=== PATIENT | female | born 1995 | race Caucasian/White ===

== ENCOUNTER 2016-10-04 06:25 | Inpatient (IN) ==
[2016-10-04] MEDS ORDERED: KEFZOL 1 GM/D5W 1 GM/50 ML IVPB IV PRN (06:28)
[2016-10-04] MEDS ORDERED: TYLENOL PO PRN (06:28)
[2016-10-04] MEDS ORDERED: PEPCID IV PRN (06:28)
[2016-10-04] MEDS ORDERED: REGLAN PO ONE (06:28)
[2016-10-04] MEDS ORDERED: PEPCID PO PRN (06:28)
[2016-10-04] MEDS ORDERED: PEPCID PO ONE (06:28)
[2016-10-04] MEDS ORDERED: ZOFRAN IV PRN (06:28)
[2016-10-04] MEDS ORDERED: STADOL IV PRN (06:28)
[2016-10-04] MEDS ORDERED: SODIUM CHLORIDE 0.9% INJ SCH (06:30)
[2016-10-04] MEDS: LR 1,000 ML IV SCH ×2 (06:48→07:32)
[2016-10-04] MEDS ORDERED: PITOCIN 30 UNITS/LR 30 UNITS/500 ML IV.SOLN IV SCH (07:00)
[2016-10-04] MEDS ORDERED: AMPICILLIN 2 GM/NS 2 GM/100 ML IVPB IV ONE (07:00)
[2016-10-04 07:15] LABS: MANUAL DIFF NEEDED? NO
[2016-10-04] MEDS ORDERED: MARCAINE 0.25% PF INJ ONE (07:15)
[2016-10-04 07:17] LABS: BASO% 0.2 % (0.0-0.8); EOS# 0.13 X1000 (0.0-0.7); EOS% 1.1 % (0.0-10.0); HEMATOCRIT 38.4 % (37.0-47.0); HEMOGLOBIN 13.2 g/dL (12.0-16.0); IMM GRAN# 0.03 X1000 (0.0-0.04); IMM GRAN% 0.3 % (0.0-0.5); LYMPH% 18.9 % (20.5-51.1); MCH 30.1 PG (27-31); MCHC 34.4 g/dL (33-37); MCV 87.7 FL (81-99); MONO# 1.07 X1000 (0.11-0.59); MONO% 9.2 % (1.7-9.3); MPV 11.1 FL (7.4-10.4); NEUT% 70.3 % (42.2-75.2); PLT 180 X1000 (130-400); RBC 4.38 XMIL (4.2-5.4)
[2016-10-04] MEDS ORDERED: FENTANYL-BUPIV-NS 2 MCG-0.1% 200 ML EPIDURAL ONE ×2 (08:00→19:00)
[2016-10-04] MEDS: AMPICILLIN 1 GM/NS 1 GM/50 ML IVPB IV SCH ×3 (12:15→18:36)
[2016-10-04] MEDS ORDERED: XYLOCAINE-MPF 1% ONE (14:56)
[2016-10-04] MEDS ORDERED: MINERAL OIL ONE ×2 (14:56→20:01)
[2016-10-04] MEDS ORDERED: REGLAN IV ONE (17:15)
[2016-10-04] MEDS ORDERED: BICITRA PO ONE (17:15)
[2016-10-04] MEDS ORDERED: PEPCID IV ONE (17:15)
[2016-10-04] MEDS ORDERED: SODIUM CHLORIDE 0.9% INJ ONE (17:15)
[2016-10-04] MEDS ORDERED: BENADRYL IV PRN (23:22)
[2016-10-04] MEDS ORDERED: HYDROXYZINE PO PRN (23:22)
[2016-10-04] MEDS ORDERED: HYDROXYZINE IM PRN (23:22)
[2016-10-04] MEDS ORDERED: PITOCIN 30 UNITS/LR 30 UNITS/500 ML IV.SOLN IV ONE (23:22)
[2016-10-04] MEDS ORDERED: PITOCIN IM PRN (23:22)
[2016-10-04] MEDS ORDERED: AMBIEN PO PRN (23:22)
[2016-10-04] MEDS ORDERED: CYTOTEC PO PRN (23:22)
[2016-10-04] MEDS ORDERED: MINERAL OIL PO PRN (23:22)
[2016-10-04] MEDS ORDERED: NORCO-5 PO PRN (23:22)
[2016-10-04] MEDS ORDERED: XYLOCAINE-MPF 1% INJ PRN (23:22)
[2016-10-04] MEDS ORDERED: PITOCIN 20 UNITS/LR 20 UNITS/1,000 ML IV.SOLN IV SCH (23:22)
[2016-10-04] MEDS ORDERED: M-M-R II VACCINE SUBQ ONE (23:22)
[2016-10-04] MEDS ORDERED: BENADRYL PO PRN (23:22)
[2016-10-04] MEDS ORDERED: PERI MEDS (DERMOPLAST/NUPERCAINAL/TUCKS) MISC PRN (23:22)
[2016-10-04] MEDS ORDERED: NORCO-10 PO PRN (23:22)
[2016-10-04] MEDS ORDERED: BOOSTRIX VACCINE IM ONE (23:22)
[2016-10-05] MEDS: MOTRIN PO PRN ×2 (00:49→22:22)
--- NOTE | 2016-10-05 03:44 | OPERATIVE NOTE ---
PROCEDURE DATE: 10/04/2016 PREDELIVERY DIAGNOSES: 1. Intrauterine at term. 2. Postdates . 3. Group B streptococcus carrier status positive and Rh-negative blood type. 4. Spontaneous onset of labor. POSTDELIVERY DIAGNOSES: 1. Intrauterine at term. 2. Postdates . 3. Group B streptococcus carrier status positive and Rh-negative blood type. 4. Spontaneous onset of labor. 5. Nuchal cord x5. PROCEDURE: Vaginal delivery. PHYSICIAN: Harpreet Orlando MD. ANESTHESIA: Epidural, done by Dr. Morejon. FINDINGS: Viable male infant, nuchal cord x5, 6 pounds 14 ounces, 7 and 9 Apgars. Occiput anterior. Placenta spontaneous, intact. Three-vessel cord. Second-degree midline vaginal laceration repair with a luppii-tz-eoirb stitch of 3-0 Polysorb. ESTIMATED BLOOD LOSS: 100 mL. COUNTS: Correct after delivery. DESCRIPTION OF PROCEDURE: Please refer to Ms. Skinner' records. She had good care. She was admitted this morning in active labor, with the above diagnoses. She was augmented with Pitocin and received epidural anesthesia and was artificially ruptured. Initially, the baby was very high. After rupture, slowly came down, developed some caput, and had some heart rate decelerations, but she made it through to complete and began pushing. Approximately 2 hours later the baby was , so at this point the bed was broken down, and with continued pushing, she delivered a viable male infant, occiput anterior, over a second-degree midline vaginal laceration. Once head delivered, she continued pushing. Shoulders immediately followed. The nuchal cord was noted, started to unwrap. There were 5 wraps of the nuchal cord around the 's neck. Once completely unwrapped, the infant was placed on mother's abdomen. Cord was doubly clamped and cut. Care of taken over by nursery personnel. The cord inspected. It was a 3-vessel cord. Then, cord blood was obtained. Gentle traction on the cord resulted in delivery of an intact placenta after approximately 3 minutes. After inspection, it was discarded. Inspection of the vaginal perineum did not reveal any lacerations. However, there was a midline vaginal laceration, repaired with a bihiow-oc-zcxyr stitch of 3-0 Polysorb. Sweep of the vagina did not reveal any clots remaining or foreign material. So at this point, the procedure was completed. Counts were correct, 10 Ray-Tecs, 1 needle, and 1 vaginal pack. Estimated blood loss 100 mL. Expect routine . cc: Harpreet Orlando MD
[2016-10-05 05:53] LABS: MANUAL DIFF NEEDED? NO
[2016-10-05 06:12] LABS: BASO% 0.1 % (0.0-0.8); EOS# 0.04 X1000 (0.0-0.7); EOS% 0.2 % (0.0-10.0); HEMATOCRIT 29.9 % (37.0-47.0); HEMOGLOBIN 10.1 g/dL (12.0-16.0); IMM GRAN# 0.04 X1000 (0.0-0.04); IMM GRAN% 0.2 % (0.0-0.5); LYMPH# 1.74 X1000 (1.2-3.4); LYMPH% 9.7 % (20.5-51.1); MCH 30.2 PG (27-31); MCHC 33.8 g/dL (33-37); MCV 89.5 FL (81-99); MONO# 1.34 X1000 (0.11-0.59); MONO% 7.4 % (1.7-9.3); MPV 11.1 FL (7.4-10.4); NEUT% 82.4 % (42.2-75.2); PLT 144 X1000 (130-400); RBC 3.34 XMIL (4.2-5.4)
[2016-10-05] MEDS ORDERED: [UNRECOGNIZED DRUG - REMARK] PO SCH (09:00)
[2016-10-05] MEDS: PRECARE PO SCH (09:49)
[2016-10-05] MEDS ORDERED: PERICOLACE PO SCH (21:00)
[2016-10-06] MEDS: PRECARE PO SCH (08:21)
[2016-10-06 10:44] VITALS: BP 129/77
== END 2016-10-06 11:05 | disposition home or self-care (01) ==
LOC: P.LD 06:25
PROVIDERS: ADMIT Obstetrics & Gynecology; ATTEND Obstetrics & Gynecology